=== PATIENT | female | born 1935 | race Caucasian/White ===

== ENCOUNTER → 2017-09-26 | Outpatient (CLI) | payer MEDICARE, SELFPAY ==
[~2017-09-26] MED LIST: ACET500 PO; BENZ100A PO; CELE100; CELE200; CEPH500 PO; Cleocin HCl300 MG PO; DIGITEK; DIGO.125 PO; DIGO.25; DIGO.25 PO; DIGOX125 MCG PO; DIPH50 PO; DOCU100 PO; DONE5 PO; Doxycycline Hy100 MG PO; Duoneb 2.5-0.5 M3 ML INH; ERGO50000 PO; FLUSAL2505 INH; FLUT.05NI; FURO20; FURO40; FURO40 PO; HYDCHLSU PO; HYDPAM25 PO; LACT10SY PO; LEVFLO500 PO; LEVSOD100; LEVSOD100 PO; LEVSOD50 PO; Levaquin500 MG PO; MECL25 PO; METO25ER PO; Norco 5-325 Ta1 EACH PO; ONDA4 PO; PRED10 PO; PRED20 PO; Prednisone20 MG PO; RXCLIN PO; RXTRAM50 PO; SERT100 PO; SERT25; SERT25 PO; SULTRIDS PO; THYROXINE; TRAM50 PO; VENL37.5 PO; VENL37.5ER PO; Ventolin Soln3 ML INH; Vibramycin100 MG PO; WARF1 PO; WARF3; WARF5 PO; WARF6; WARF6 PO; WARF7.5 PO; XARELTO15 MG PO; Zithromax250 MG PO
== END | disposition home or self-care (01) ==
LOC: LAB 13:45 → LAB SHORT 13:45
DX: L03.116 Cellulitis of left lower limb (principal)
CPT/HCPCS: 87070; 87077; 87186; 87205

== ENCOUNTER 2017-10-20 00:41 | Day surgery (SDC) | payer MEDICARE, SELFPAY ==
[~2017-10-20 00:41] MED LIST changes: -ACET500 PO; -DIGOX125 MCG PO; -DOCU100 PO; -DONE5 PO; -Doxycycline Hy100 MG PO; -VENL37.5ER PO; -WARF5 PO; -XARELTO15 MG PO
[2018-04-23] MEDS ORDERED: VENL37.5ER PO (16:21)
[2018-04-23] MEDS ORDERED: METO25ER PO (16:21)
[2018-08-09] MEDS ORDERED: CEPH500 PO (21:43)
== END 2017-10-20 23:19 | disposition home or self-care (01) ==
LOC: WOUND 00:41
PROC: 0KBT0ZZ Excision of Left Lower Leg Muscle, Open Approach (ICD-10-PCS; principal; 2017-10-20)
DX: L97.223 Non-pressure chronic ulcer of left calf with necrosis of muscle (principal); I87.2 Venous insufficiency (chronic) (peripheral); I87.002 Postthrombotic syndrome without complications of left lower extremity; I10 Essential (primary) hypertension; I48.0 Paroxysmal atrial fibrillation
CPT/HCPCS: 87070; 87075; 87077; 87186; 87205; G0463

== ENCOUNTER 2017-10-26 09:30 | Day surgery (SDC) | payer MEDICARE, OTHER ==
[~2017-10-26] VITALS: Ht 177.8 cm; Wt 94.1 kg
[2018-04-23] MEDS ORDERED: VENL37.5ER PO (16:21)
[2018-04-23] MEDS ORDERED: METO25ER PO (16:21)
[2018-08-09] MEDS ORDERED: CEPH500 PO (21:43)
== END 2017-10-26 14:20 | disposition home or self-care (01) ==
LOC: WOUND 09:30
DX: Z48.00 Encounter for change or removal of nonsurgical wound dressing (principal); L97.223 Non-pressure chronic ulcer of left calf with necrosis of muscle; I87.002 Postthrombotic syndrome without complications of left lower extremity; I87.2 Venous insufficiency (chronic) (peripheral); I10 Essential (primary) hypertension; I48.0 Paroxysmal atrial fibrillation; Z86.718 Personal history of other venous thrombosis and embolism; Z79.01 Long term (current) use of anticoagulants; F32.9 Major depressive disorder, single episode, unspecified
CPT/HCPCS: G0463

== ENCOUNTER 2017-10-30 00:06 | Day surgery (SDC) | payer MEDICARE ==
[2018-04-23] MEDS ORDERED: METO25ER PO (16:21)
[2018-04-23] MEDS ORDERED: VENL37.5ER PO (16:21)
[2018-08-09] MEDS ORDERED: CEPH500 PO (21:43)
== END 2017-10-30 09:40 | disposition home or self-care (01) ==
LOC: WOUND 00:06
PROC: 0HBLXZZ Excision of Left Lower Leg Skin, External Approach (ICD-10-PCS; principal; 2017-10-30)
DX: Z48.00 Encounter for change or removal of nonsurgical wound dressing (principal); I87.2 Venous insufficiency (chronic) (peripheral); L97.223 Non-pressure chronic ulcer of left calf with necrosis of muscle; I87.002 Postthrombotic syndrome without complications of left lower extremity; I10 Essential (primary) hypertension; I48.0 Paroxysmal atrial fibrillation

== ENCOUNTER 2017-11-08 00:11 | Day surgery (SDC) | payer MEDICARE ==
[2018-04-23] MEDS ORDERED: METO25ER PO (16:21)
[2018-04-23] MEDS ORDERED: VENL37.5ER PO (16:21)
[2018-08-09] MEDS ORDERED: CEPH500 PO (21:43)
== END 2017-11-08 22:43 | disposition home or self-care (01) ==
LOC: WOUND 00:11
PROC: 2W1RX6Z Compression of Left Lower Leg using Pressure Dressing (ICD-10-PCS; principal; 2017-11-08)
PROC: 0HBLXZZ Excision of Left Lower Leg Skin, External Approach (ICD-10-PCS; principal; 2017-11-08)
DX: Z48.00 Encounter for change or removal of nonsurgical wound dressing (principal); I87.2 Venous insufficiency (chronic) (peripheral); L97.223 Non-pressure chronic ulcer of left calf with necrosis of muscle; I87.002 Postthrombotic syndrome without complications of left lower extremity; I10 Essential (primary) hypertension; I48.0 Paroxysmal atrial fibrillation
CPT/HCPCS: G0463

== ENCOUNTER → 2017-11-14 | Outpatient (CLI) | payer MEDICARE, SELFPAY ==
[~2017-11-14] MED LIST changes: +ACET500 PO; +DIGOX125 MCG PO; +DOCU100 PO; +DONE5 PO; +Doxycycline Hy100 MG PO; +VENL37.5ER PO; +WARF5 PO; +XARELTO15 MG PO
== END | disposition home or self-care (01) ==
LOC: LAB SHORT 15:52 → OLS 15:52
DX: I87.2 Venous insufficiency (chronic) (peripheral) (principal); L97.223 Non-pressure chronic ulcer of left calf with necrosis of muscle
CPT/HCPCS: 87070; 87205

== ENCOUNTER 2017-11-15 09:01 | Day surgery (SDC) | payer MEDICARE, SELFPAY ==
[~2017-11-15 09:01] MED LIST changes: -ACET500 PO; -DIGOX125 MCG PO; -DOCU100 PO; -DONE5 PO; -Doxycycline Hy100 MG PO; -VENL37.5ER PO; -WARF5 PO; -XARELTO15 MG PO
[2018-04-23] MEDS ORDERED: METO25ER PO (16:21)
[2018-04-23] MEDS ORDERED: VENL37.5ER PO (16:21)
[2018-08-09] MEDS ORDERED: CEPH500 PO (21:43)
== END 2017-11-15 22:36 | disposition home or self-care (01) ==
LOC: WOUND 09:01
PROC: 0HBLXZZ Excision of Left Lower Leg Skin, External Approach (ICD-10-PCS; principal; 2017-11-15)
DX: L97.223 Non-pressure chronic ulcer of left calf with necrosis of muscle (principal); I87.2 Venous insufficiency (chronic) (peripheral); I87.002 Postthrombotic syndrome without complications of left lower extremity; I10 Essential (primary) hypertension; I48.0 Paroxysmal atrial fibrillation; Z79.01 Long term (current) use of anticoagulants
CPT/HCPCS: G0463

== ENCOUNTER 2017-11-22 10:00 | Day surgery (SDC) | payer MEDICARE ==
[2018-04-23] MEDS ORDERED: VENL37.5ER PO (16:21)
[2018-04-23] MEDS ORDERED: METO25ER PO (16:21)
[2018-08-09] MEDS ORDERED: CEPH500 PO (21:43)
== END 2017-11-22 22:54 | disposition home or self-care (01) ==
LOC: WOUND 10:00
PROC: 2W1RX6Z Compression of Left Lower Leg using Pressure Dressing (ICD-10-PCS; principal; 2017-11-22)
DX: I87.2 Venous insufficiency (chronic) (peripheral) (principal); L97.223 Non-pressure chronic ulcer of left calf with necrosis of muscle; I87.002 Postthrombotic syndrome without complications of left lower extremity; I10 Essential (primary) hypertension; I48.0 Paroxysmal atrial fibrillation; Z79.01 Long term (current) use of anticoagulants

== ENCOUNTER 2017-11-29 10:09 | Day surgery (SDC) | payer MEDICARE ==
[2018-04-23] MEDS ORDERED: METO25ER PO (16:21)
[2018-04-23] MEDS ORDERED: VENL37.5ER PO (16:21)
[2018-08-09] MEDS ORDERED: CEPH500 PO (21:43)
== END 2017-11-29 16:49 | disposition home or self-care (01) ==
LOC: WOUND 10:09
PROC: 2W1RX6Z Compression of Left Lower Leg using Pressure Dressing (ICD-10-PCS; principal; 2017-11-29)
DX: I87.2 Venous insufficiency (chronic) (peripheral) (principal); L97.223 Non-pressure chronic ulcer of left calf with necrosis of muscle; I87.002 Postthrombotic syndrome without complications of left lower extremity; I10 Essential (primary) hypertension; I48.0 Paroxysmal atrial fibrillation; Z86.718 Personal history of other venous thrombosis and embolism; Z79.01 Long term (current) use of anticoagulants

== ENCOUNTER 2017-12-08 00:15 | Day surgery (SDC) | payer MEDICARE, SELFPAY ==
[2018-04-23] MEDS ORDERED: VENL37.5ER PO (16:21)
[2018-04-23] MEDS ORDERED: METO25ER PO (16:21)
[2018-08-09] MEDS ORDERED: CEPH500 PO (21:43)
== END 2017-12-08 15:54 | disposition home or self-care (01) ==
LOC: WOUND 00:15
PROC: 0JBP0ZZ Excision of Left Lower Leg Subcutaneous Tissue and Fascia, Open Approach (ICD-10-PCS; principal; 2017-12-08)
DX: Z48.00 Encounter for change or removal of nonsurgical wound dressing (principal); I87.2 Venous insufficiency (chronic) (peripheral); L97.822 Non-pressure chronic ulcer of other part of left lower leg with fat layer exposed; I87.002 Postthrombotic syndrome without complications of left lower extremity; I82.512 Chronic embolism and thrombosis of left femoral vein; I48.0 Paroxysmal atrial fibrillation; I10 Essential (primary) hypertension; F32.9 Major depressive disorder, single episode, unspecified; Z79.01 Long term (current) use of anticoagulants; Z90.710 Acquired absence of both cervix and uterus
CPT/HCPCS: 87070; 87075; 87077; 87186; 87205

== ENCOUNTER 2017-12-13 10:00 | Day surgery (SDC) | payer MEDICARE | END 2017-12-13 12:08 | disposition home or self-care (01) | LOC: WOUND 10:00 | PROC: 0HBLXZZ Excision of Left Lower Leg Skin, External Approach (ICD-10-PCS; principal; 2017-12-13) | DX: I87.2 Venous insufficiency (chronic) (peripheral) (principal); L97.223 Non-pressure chronic ulcer of left calf with necrosis of muscle; I87.002 Postthrombotic syndrome without complications of left lower extremity; I10 Essential (primary) hypertension; I48.0 Paroxysmal atrial fibrillation; F03.90 Unspecified dementia, unspecified severity, without behavioral disturbance, psychotic disturbance, mood disturbance, and anxiety; Z86.718 Personal history of other venous thrombosis and embolism; Z79.01 Long term (current) use of anticoagulants; F32.9 Major depressive disorder, single episode, unspecified | CPT/HCPCS: G0463 ==

== ENCOUNTER 2017-12-16 18:38 | Observation (INO) | payer MEDICARE ==
[~2017-12-16] VITALS: Ht 177.8 cm; Wt 90.0 kg
[2017-12-16] MEDS ORDERED: WARF5 PO ×2 (19:08→19:09)
[2017-12-17 01:33] LABS: Source, Urine Clean Catch
[2017-12-17 02:05] LABS: Bilirubin, Urine Neg (Neg); Blood, Urine 1+ (Neg); Glucose Qualitative, Urine Neg (Neg); Ketones, Urine Neg (Neg); Leukocyte Esterase, Urine Neg (Neg); Nitrite, Urine Neg (Neg); Protein, Urine Neg (Neg); Urobilinogen, Urine NORM (Normal); pH, Urine 6.5 (5.0-8.0)
[2017-12-17 02:10] LABS: Appearance, Urine Hazy (Clear); Color, Urine Yellow (P-Yellow)
[2017-12-17 02:26] LABS: Bacteria Not Seen /hpf; Other Crystals Many /hpf; Red Blood Cells, Urine 0-2 /hpf (0-2); Squamous Epithelial Cells Not Seen /hpf (Few); White Blood Cells, Urine Not Seen /hpf (0-5)
[2017-12-17 05:27] LABS: BASOPHILS ABSOLUTE AUTO 0.02 K/mm3 (0.00-0.23); BASOPHILS PERCENT AUTO 0 % (0-2); EOSINOPHILS ABSOLUTE AUTO 0.23 K/mm3 (0.00-0.68); EOSINOPHILS PERCENT AUTO 5 % (0-6); Hematocrit 32.1 % (33.0-51.0); Hemoglobin 10.1 g/dL (11.5-16.0); IMMATURE GRAN ABSOLUTE AUTO 0.01 K/mm3 (0.00-0.10); IMMATURE GRAN PERCENT AUTO 0 % (0-1); LYMPHOCYTES ABSOLUTE AUTO 1.25 K/mm3 (0.84-5.20); LYMPHOCYTES PERCENT AUTO 26 % (21-46); MONOCYTES ABSOLUTE AUTO 0.41 K/mm3 (0.16-1.47); MONOCYTES PERCENT AUTO 9 % (4-13); Mean Corpuscular HGB 28.7 pg (26.0-34.0); Mean Corpuscular HGB Conc 31.5 g/dL (31.5-36.5); Mean Corpuscular Volume 91 fL (80-100); Mean Platelet Volume 9.4 fL (9.1-12.4); NEUTROPHILS ABSOLUTE AUTO 2.83 K/mm3 (1.96-9.15); NEUTROPHILS PERCENT AUTO 60 % (41-73); Platelet Count 200 K/mm3 (150-400); RDW Coefficient Variation 14.1 % (11.7-14.2); RDW Standard Deviation 47.4 fL (35.1-46.3); Red Blood Cell Count 3.52 M/mm3 (3.80-5.20); White Blood Cell Count 4.75 K/mm3 (4.00-11.30)
[2017-12-17 05:39] LABS: International Normalized Ratio 1.8; Prothrombin Time Results 19.1 Sec (9.7-11.5)
[2017-12-17 05:50] LABS: Alanine Aminotransfer (ALT/SGP 19 U/L (12-78); Albumin, Blood 3.2 g/dL (3.4-5.0); Albumin/Globulin Ratio 0.9 (0.8-1.8); Alk Phos 69 U/L (50-136); Anion Gap 7 mmol/L (6-16); Aspartate Aminotrans (AST/SGOT 16 U/L (12-37); Bilirubin, Total 0.4 mg/dL (0.1-1.0); Blood Urea Nitrogen 21 mg/dL (8-24); Bun/Creatinine Ratio 32.8 (12.0-20.0); CO2, Blood 28 mmol/L (21-32); Chloride, Blood 107 mmol/L (98-108); Creatinine, Blood 0.64 mg/dL (0.40-1.00); Globulin, Blood 3.4 g/dL (2.2-4.0); Glomerular Filtration Rate >60 (60-); Glucose, Blood 88 mg/dL (70-99); Potassium, Blood 3.7 mmol/L (3.5-5.5); Sodium, Blood 142 mmol/L (136-145); Total Protein, Blood 6.6 g/dL (6.4-8.2)
[2017-12-17 06:04] LABS: Digoxin (Lanoxin) 0.09 ug/mL (0.80-2.00)
[2017-12-18 05:36] LABS: BASOPHILS ABSOLUTE AUTO 0.02 K/mm3 (0.00-0.23); BASOPHILS PERCENT AUTO 1 % (0-2); EOSINOPHILS ABSOLUTE AUTO 0.24 K/mm3 (0.00-0.68); EOSINOPHILS PERCENT AUTO 6 % (0-6); Hematocrit 32.4 % (33.0-51.0); Hemoglobin 10.4 g/dL (11.5-16.0); IMMATURE GRAN ABSOLUTE AUTO 0.01 K/mm3 (0.00-0.10); IMMATURE GRAN PERCENT AUTO 0 % (0-1); LYMPHOCYTES ABSOLUTE AUTO 0.92 K/mm3 (0.84-5.20); LYMPHOCYTES PERCENT AUTO 22 % (21-46); MONOCYTES ABSOLUTE AUTO 0.37 K/mm3 (0.16-1.47); MONOCYTES PERCENT AUTO 9 % (4-13); Mean Corpuscular HGB 29.1 pg (26.0-34.0); Mean Corpuscular HGB Conc 32.1 g/dL (31.5-36.5); Mean Corpuscular Volume 91 fL (80-100); Mean Platelet Volume 9.4 fL (9.1-12.4); NEUTROPHILS ABSOLUTE AUTO 2.57 K/mm3 (1.96-9.15); NEUTROPHILS PERCENT AUTO 62 % (41-73); Platelet Count 191 K/mm3 (150-400); RDW Coefficient Variation 14.1 % (11.7-14.2); RDW Standard Deviation 46.9 fL (35.1-46.3); Red Blood Cell Count 3.58 M/mm3 (3.80-5.20); White Blood Cell Count 4.13 K/mm3 (4.00-11.30)
[2017-12-18 05:48] LABS: International Normalized Ratio 1.77; Prothrombin Time Results 18.7 Sec (9.7-11.5)
[2017-12-18 05:58] LABS: Anion Gap 6 mmol/L (6-16); Blood Urea Nitrogen 30 mg/dL (8-24); Bun/Creatinine Ratio 35.3 (12.0-20.0); CO2, Blood 28 mmol/L (21-32); Calcium, Blood 8.1 mg/dL (8.5-10.1); Chloride, Blood 107 mmol/L (98-108); Creatinine, Blood 0.85 mg/dL (0.40-1.00); Glomerular Filtration Rate >60 (60-); Glucose, Blood 103 mg/dL (70-99); Sodium, Blood 141 mmol/L (136-145)
[2017-12-18] MEDS ORDERED: DOCU100 PO (15:00)
[2017-12-18] MEDS ORDERED: DIGOX125 MCG PO (15:00)
[2017-12-18] MEDS ORDERED: ACET500 PO (15:01)
[2017-12-18] MEDS ORDERED: DONE5 PO (15:02)
== END 2017-12-18 17:40 | disposition home health service (06) ==
LOC: ER 18:38 → MEDS 18:39 → ER 12-17 00:27 → MEDS 12-17 00:35 → ENPENDDIS 12-18 14:00 → MEDS 12-18 17:40
PROVIDERS: Hospitalist; Internal Medicine
DX: S70.02XA Contusion of left hip, initial encounter (principal); S30.0XXA Contusion of lower back and pelvis, initial encounter; S80.12XA Contusion of left lower leg, initial encounter; F03.90 Unspecified dementia, unspecified severity, without behavioral disturbance, psychotic disturbance, mood disturbance, and anxiety; I87.2 Venous insufficiency (chronic) (peripheral); E03.9 Hypothyroidism, unspecified; R41.9 Unspecified symptoms and signs involving cognitive functions and awareness; F41.9 Anxiety disorder, unspecified; L97.329 Non-pressure chronic ulcer of left ankle with unspecified severity; Z88.0 Allergy status to penicillin; Z88.2 Allergy status to sulfonamides; Z79.899 Other long term (current) drug therapy; Z88.6 Allergy status to analgesic agent; Z88.8 Allergy status to other drugs, medicaments and biological substances; Z79.01 Long term (current) use of anticoagulants; Z88.1 Allergy status to other antibiotic agents; Z91.041 Radiographic dye allergy status; V87.8XXA Person injured in other specified noncollision transport accidents involving motor vehicle (traffic), initial encounter
CPT/HCPCS: 36415; 72100; 72131; 73502; 73700; 80048; 80053; 80162; 81001; 85025; 85610; 96372; 96374; 96375; 97116; 97161; 97167; 97530; 97535; 99285; G0378; G8978; G8979; G8987; G8988; J1650; J1885; J3010; Q2038

== ENCOUNTER 2017-12-20 10:20 | Day surgery (SDC) | payer MEDICARE ==
[~2017-12-20 10:20] MED LIST changes: +ACET500 PO; +DIGOX125 MCG PO; +DOCU100 PO; +DONE5 PO; +WARF5 PO
== END 2017-12-20 22:45 | disposition home or self-care (01) ==
LOC: WOUND 10:20
DX: Z48.00 Encounter for change or removal of nonsurgical wound dressing (principal); I87.2 Venous insufficiency (chronic) (peripheral); L97.223 Non-pressure chronic ulcer of left calf with necrosis of muscle; I87.002 Postthrombotic syndrome without complications of left lower extremity; I10 Essential (primary) hypertension; I48.0 Paroxysmal atrial fibrillation; Z79.01 Long term (current) use of anticoagulants
CPT/HCPCS: G0463

== ENCOUNTER 2017-12-25 10:22 | Day surgery (SDC) | payer MEDICARE | END 2017-12-25 12:05 | disposition home or self-care (01) | LOC: WOUND 10:22 | PROC: 2W1MX6Z Compression of Left Lower Extremity using Pressure Dressing (ICD-10-PCS; principal; 2017-12-25) | PROC: 0HBLXZZ Excision of Left Lower Leg Skin, External Approach (ICD-10-PCS; principal; 2017-12-25) | DX: I87.2 Venous insufficiency (chronic) (peripheral) (principal); L97.329 Non-pressure chronic ulcer of left ankle with unspecified severity; L97.223 Non-pressure chronic ulcer of left calf with necrosis of muscle; I87.002 Postthrombotic syndrome without complications of left lower extremity; I10 Essential (primary) hypertension; I48.0 Paroxysmal atrial fibrillation; Z79.01 Long term (current) use of anticoagulants ==

== ENCOUNTER 2017-12-25 11:39 | Emergency (ER) | payer MEDICARE ==
[~2017-12-25] VITALS: Ht 177.8 cm; Wt 90.7 kg
== END 2017-12-25 14:42 | disposition home or self-care (01) ==
LOC: ER 11:39
DX: T14.8XXA Other injury of unspecified body region, initial encounter (principal); I48.91 Unspecified atrial fibrillation; Z88.2 Allergy status to sulfonamides; Z88.0 Allergy status to penicillin; Z88.6 Allergy status to analgesic agent; Z88.8 Allergy status to other drugs, medicaments and biological substances; Z88.1 Allergy status to other antibiotic agents; Z79.899 Other long term (current) drug therapy; Z79.01 Long term (current) use of anticoagulants; Z86.718 Personal history of other venous thrombosis and embolism; W19.XXXA Unspecified fall, initial encounter
CPT/HCPCS: 99282

== ENCOUNTER 2018-01-08 10:15 | Day surgery (SDC) | payer MEDICARE, SELFPAY | END 2018-01-08 23:09 | disposition home or self-care (01) | LOC: WOUND 10:15 | PROC: 2W1RX6Z Compression of Left Lower Leg using Pressure Dressing (ICD-10-PCS; principal; 2018-01-08) | DX: L97.822 Non-pressure chronic ulcer of other part of left lower leg with fat layer exposed (principal); I87.2 Venous insufficiency (chronic) (peripheral); L97.223 Non-pressure chronic ulcer of left calf with necrosis of muscle; I87.002 Postthrombotic syndrome without complications of left lower extremity; I10 Essential (primary) hypertension; I48.0 Paroxysmal atrial fibrillation; Z79.02 Long term (current) use of antithrombotics/antiplatelets; F32.9 Major depressive disorder, single episode, unspecified | CPT/HCPCS: G0463 ==

== ENCOUNTER 2018-01-15 10:00 | Day surgery (SDC) | payer MEDICARE, SELFPAY | END 2018-01-15 12:09 | disposition home or self-care (01) | LOC: WOUND 10:00 | PROC: 2W1RX6Z Compression of Left Lower Leg using Pressure Dressing (ICD-10-PCS; principal; 2018-01-15) | DX: L97.822 Non-pressure chronic ulcer of other part of left lower leg with fat layer exposed (principal); I87.2 Venous insufficiency (chronic) (peripheral); L97.223 Non-pressure chronic ulcer of left calf with necrosis of muscle; I10 Essential (primary) hypertension; I48.0 Paroxysmal atrial fibrillation; Z79.01 Long term (current) use of anticoagulants | CPT/HCPCS: G0463 ==

== ENCOUNTER 2018-01-22 10:20 | Day surgery (SDC) | payer MEDICARE, SELFPAY | END 2018-01-22 22:43 | disposition home or self-care (01) | LOC: WOUND 10:20 | PROC: 0HBLXZZ Excision of Left Lower Leg Skin, External Approach (ICD-10-PCS; principal; 2018-01-22) | PROC: 2W1MX6Z Compression of Left Lower Extremity using Pressure Dressing (ICD-10-PCS; principal; 2018-01-22) | DX: I87.2 Venous insufficiency (chronic) (peripheral) (principal); L97.822 Non-pressure chronic ulcer of other part of left lower leg with fat layer exposed; I87.002 Postthrombotic syndrome without complications of left lower extremity; I10 Essential (primary) hypertension; I48.0 Paroxysmal atrial fibrillation; Z79.01 Long term (current) use of anticoagulants | CPT/HCPCS: G0463 ==

== ENCOUNTER 2018-01-29 09:08 | Day surgery (SDC) | payer MEDICARE, SELFPAY | END 2018-01-29 22:46 | disposition home or self-care (01) | LOC: WOUND 09:08 | PROC: 2W1RX6Z Compression of Left Lower Leg using Pressure Dressing (ICD-10-PCS; principal; 2018-01-29) | DX: I87.2 Venous insufficiency (chronic) (peripheral) (principal); L97.822 Non-pressure chronic ulcer of other part of left lower leg with fat layer exposed; L97.223 Non-pressure chronic ulcer of left calf with necrosis of muscle; I10 Essential (primary) hypertension; I48.0 Paroxysmal atrial fibrillation; Z79.01 Long term (current) use of anticoagulants | CPT/HCPCS: G0463 ==

== ENCOUNTER 2018-02-05 10:15 | Day surgery (SDC) | payer MEDICARE, SELFPAY | END 2018-02-05 12:39 | disposition home or self-care (01) | LOC: WOUND 10:15 | PROC: 0HBLXZZ Excision of Left Lower Leg Skin, External Approach (ICD-10-PCS; principal; 2018-02-05) | DX: L97.822 Non-pressure chronic ulcer of other part of left lower leg with fat layer exposed (principal); I10 Essential (primary) hypertension; F32.9 Major depressive disorder, single episode, unspecified; Z79.01 Long term (current) use of anticoagulants; I48.0 Paroxysmal atrial fibrillation ==

== ENCOUNTER 2018-02-19 10:30 | Day surgery (SDC) | payer MEDICARE, SELFPAY | END 2018-02-19 13:50 | disposition home or self-care (01) | LOC: WOUND 10:30 | PROC: 0HBLXZZ Excision of Left Lower Leg Skin, External Approach (ICD-10-PCS; principal; 2018-02-19) | PROC: 2W1RX6Z Compression of Left Lower Leg using Pressure Dressing (ICD-10-PCS; principal; 2018-02-19) | DX: L97.822 Non-pressure chronic ulcer of other part of left lower leg with fat layer exposed (principal); I10 Essential (primary) hypertension; F32.9 Major depressive disorder, single episode, unspecified; Z86.718 Personal history of other venous thrombosis and embolism; Z79.01 Long term (current) use of anticoagulants; I87.2 Venous insufficiency (chronic) (peripheral); I48.0 Paroxysmal atrial fibrillation | CPT/HCPCS: G0463 ==

== ENCOUNTER 2018-02-26 10:22 | Day surgery (SDC) | payer MEDICARE, SELFPAY | END 2018-02-26 11:25 | disposition home or self-care (01) | LOC: WOUND 10:22 | PROC: 2W1RX6Z Compression of Left Lower Leg using Pressure Dressing (ICD-10-PCS; principal; 2018-02-26) | PROC: 0HBLXZZ Excision of Left Lower Leg Skin, External Approach (ICD-10-PCS; principal; 2018-02-26) | DX: I87.2 Venous insufficiency (chronic) (peripheral) (principal); L97.829 Non-pressure chronic ulcer of other part of left lower leg with unspecified severity; I87.002 Postthrombotic syndrome without complications of left lower extremity; I10 Essential (primary) hypertension; I48.0 Paroxysmal atrial fibrillation; Z79.01 Long term (current) use of anticoagulants ==

== ENCOUNTER 2018-03-12 10:29 | Day surgery (SDC) | payer MEDICARE, SELFPAY | END 2018-03-12 13:52 | disposition home or self-care (01) | LOC: WOUND 10:29 | PROC: 0HBLXZZ Excision of Left Lower Leg Skin, External Approach (ICD-10-PCS; principal; 2018-03-12) | PROC: 2W1MX6Z Compression of Left Lower Extremity using Pressure Dressing (ICD-10-PCS; principal; 2018-03-12) | DX: L97.822 Non-pressure chronic ulcer of other part of left lower leg with fat layer exposed (principal); I87.2 Venous insufficiency (chronic) (peripheral); I87.002 Postthrombotic syndrome without complications of left lower extremity; I10 Essential (primary) hypertension; I48.0 Paroxysmal atrial fibrillation; Z86.718 Personal history of other venous thrombosis and embolism; Z79.01 Long term (current) use of anticoagulants; F32.9 Major depressive disorder, single episode, unspecified ==

== ENCOUNTER 2018-03-26 10:30 | Day surgery (SDC) | payer MEDICARE, SELFPAY | END 2018-03-26 12:12 | disposition home or self-care (01) | LOC: WOUND 10:30 | DX: L97.822 Non-pressure chronic ulcer of other part of left lower leg with fat layer exposed (principal); L97.223 Non-pressure chronic ulcer of left calf with necrosis of muscle; I87.2 Venous insufficiency (chronic) (peripheral); I87.002 Postthrombotic syndrome without complications of left lower extremity; I10 Essential (primary) hypertension; I48.0 Paroxysmal atrial fibrillation; Z86.718 Personal history of other venous thrombosis and embolism; Z79.01 Long term (current) use of anticoagulants; F32.9 Major depressive disorder, single episode, unspecified; R60.0 Localized edema; L84 Corns and callosities | CPT/HCPCS: G0463 ==

== ENCOUNTER 2018-04-02 10:30 | Day surgery (SDC) | payer MEDICARE, SELFPAY | END 2018-04-02 12:19 | disposition home or self-care (01) | LOC: WOUND 10:30 | PROC: 0JBP0ZZ Excision of Left Lower Leg Subcutaneous Tissue and Fascia, Open Approach (ICD-10-PCS; principal; 2018-04-02) | PROC: 2W1RX6Z Compression of Left Lower Leg using Pressure Dressing (ICD-10-PCS; principal; 2018-04-02) | DX: Z48.00 Encounter for change or removal of nonsurgical wound dressing (principal); I87.2 Venous insufficiency (chronic) (peripheral); I87.002 Postthrombotic syndrome without complications of left lower extremity; L97.822 Non-pressure chronic ulcer of other part of left lower leg with fat layer exposed; I10 Essential (primary) hypertension; I48.0 Paroxysmal atrial fibrillation; F32.9 Major depressive disorder, single episode, unspecified; Z86.718 Personal history of other venous thrombosis and embolism; Z79.01 Long term (current) use of anticoagulants | CPT/HCPCS: G0463 ==

== ENCOUNTER 2018-04-04 14:30 | Day surgery (SDC) | payer MEDICARE, SELFPAY | END 2018-04-04 14:51 | disposition home or self-care (01) | LOC: WOUND 14:30 | PROC: 2W1RX6Z Compression of Left Lower Leg using Pressure Dressing (ICD-10-PCS; principal; 2018-04-04) | DX: I87.2 Venous insufficiency (chronic) (peripheral) (principal); L97.223 Non-pressure chronic ulcer of left calf with necrosis of muscle; I48.0 Paroxysmal atrial fibrillation; I10 Essential (primary) hypertension ==

== ENCOUNTER 2018-04-24 09:18 | Day surgery (SDC) | payer MEDICARE, SELFPAY ==
[~2018-04-24] VITALS: Ht 177.8 cm; Wt 90.0 kg
[~2018-04-24 09:18] MED LIST changes: +VENL37.5ER PO
[2018-04-24] MEDS ORDERED: XARELTO15 MG PO (10:34)
== END 2018-04-24 22:34 | disposition home or self-care (01) ==
LOC: MHTC 09:18
PROC: 3E033TZ Introduction of Destructive Agent into Peripheral Vein, Percutaneous Approach (ICD-10-PCS; principal; 2018-04-24)
DX: I83.029 Varicose veins of left lower extremity with ulcer of unspecified site (principal); L97.929 Non-pressure chronic ulcer of unspecified part of left lower leg with unspecified severity; I87.2 Venous insufficiency (chronic) (peripheral); E03.9 Hypothyroidism, unspecified
CPT/HCPCS: 36466; 99152; J2250; J3010; J7030; J7040

== ENCOUNTER → 2018-05-09 | Outpatient (CLI) | payer MEDICARE, SELFPAY ==
[~2018-05-09] MED LIST changes: +Doxycycline Hy100 MG PO; +XARELTO15 MG PO
[2018-05-09 11:50] LABS: BASOPHILS ABSOLUTE AUTO 0.01 K/mm3 (0.00-0.23); BASOPHILS PERCENT AUTO 0 % (0-2); EOSINOPHILS ABSOLUTE AUTO 0.21 K/mm3 (0.00-0.68); EOSINOPHILS PERCENT AUTO 5 % (0-6); Hematocrit 32.9 % (33.0-51.0); Hemoglobin 10.5 g/dL (11.5-16.0); IMMATURE GRAN ABSOLUTE AUTO 0.01 K/mm3 (0.00-0.10); IMMATURE GRAN PERCENT AUTO 0 % (0-1); LYMPHOCYTES ABSOLUTE AUTO 0.79 K/mm3 (0.84-5.20); LYMPHOCYTES PERCENT AUTO 20 % (21-46); MONOCYTES ABSOLUTE AUTO 0.25 K/mm3 (0.16-1.47); MONOCYTES PERCENT AUTO 6 % (4-13); Mean Corpuscular HGB 29.9 pg (26.0-34.0); Mean Corpuscular HGB Conc 31.9 g/dL (31.5-36.5); Mean Corpuscular Volume 94 fL (80-100); Mean Platelet Volume 9.4 fL (9.1-12.4); NEUTROPHILS ABSOLUTE AUTO 2.66 K/mm3 (1.96-9.15); NEUTROPHILS PERCENT AUTO 68 % (41-73); Platelet Count 211 K/mm3 (150-400); RDW Coefficient Variation 13.9 % (11.7-14.2); RDW Standard Deviation 47.4 fL (35.1-46.3); Red Blood Cell Count 3.51 M/mm3 (3.80-5.20); White Blood Cell Count 3.93 K/mm3 (4.00-11.30)
[2018-05-09 12:42] LABS: Alanine Aminotransfer (ALT/SGP 19 U/L (12-78); Albumin, Blood 3.8 g/dL (3.4-5.0); Albumin/Globulin Ratio 1.2 (0.8-1.8); Alk Phos 70 U/L (50-136); Anion Gap 7 mmol/L (6-16); Aspartate Aminotrans (AST/SGOT 14 U/L (12-37); Bilirubin, Total 0.4 mg/dL (0.1-1.0); Blood Urea Nitrogen 22 mg/dL (8-24); Bun/Creatinine Ratio 30.9 (12.0-20.0); CHOL/HDL RATIO 3.3; CO2, Blood 28 mmol/L (21-32); Chloride, Blood 106 mmol/L (98-108); Cholesterol 149 mg/dL (50-200); Creatinine, Blood 0.71 mg/dL (0.40-1.00); Globulin, Blood 3.1 g/dL (2.2-4.0); Glomerular Filtration Rate >60 (60-); Glucose, Blood 89 mg/dL (70-99); HDL Cholesterol 45 mg/dL (>39); LDL/HDL RATIO 1.9; Low Density Lipoprotein Chol 85 mg/dL (0-110); Potassium, Blood 3.4 mmol/L (3.5-5.5); Sodium, Blood 141 mmol/L (136-145); Total Protein, Blood 6.9 g/dL (6.4-8.2); Triglycerides 96 mg/dL (30-160); Very Low Density Lipoprot Chol 19 mg/dL (6-32)
== END ==
LOC: LAB 11:36 → LAB SHORT 11:36
PROVIDERS: Hospitalist
DX: E78.5 Hyperlipidemia, unspecified (principal); R73.01 Impaired fasting glucose; E78.4 Other hyperlipidemia; E03.8 Other specified hypothyroidism; E03.9 Hypothyroidism, unspecified; I10 Essential (primary) hypertension; I48.2 Chronic atrial fibrillation
CPT/HCPCS: 80053; 80061; 83036; 84443; 85025

== ENCOUNTER 2018-05-17 21:30 | Emergency (ER) | payer MEDICARE, SELFPAY ==
[~2018-05-17] VITALS: Ht 162.6 cm; Wt 81.7 kg
[~2018-05-17 21:30] MED LIST changes: -Doxycycline Hy100 MG PO
[2018-05-17 22:44] LABS: BASOPHILS ABSOLUTE AUTO 0.02 K/mm3 (0.00-0.23); BASOPHILS PERCENT AUTO 0 % (0-2); EOSINOPHILS ABSOLUTE AUTO 0.17 K/mm3 (0.00-0.68); EOSINOPHILS PERCENT AUTO 2 % (0-6); Hematocrit 34.3 % (33.0-51.0); IMMATURE GRAN ABSOLUTE AUTO 0.02 K/mm3 (0.00-0.10); IMMATURE GRAN PERCENT AUTO 0 % (0-1); LYMPHOCYTES ABSOLUTE AUTO 0.79 K/mm3 (0.84-5.20); LYMPHOCYTES PERCENT AUTO 11 % (21-46); MONOCYTES ABSOLUTE AUTO 0.54 K/mm3 (0.16-1.47); MONOCYTES PERCENT AUTO 7 % (4-13); Mean Corpuscular HGB 30.3 pg (26.0-34.0); Mean Corpuscular HGB Conc 32.1 g/dL (31.5-36.5); Mean Corpuscular Volume 95 fL (80-100); Mean Platelet Volume 9.4 fL (9.1-12.4); NEUTROPHILS ABSOLUTE AUTO 5.87 K/mm3 (1.96-9.15); NEUTROPHILS PERCENT AUTO 79 % (41-73); Platelet Count 194 K/mm3 (150-400); RDW Coefficient Variation 13.9 % (11.7-14.2); RDW Standard Deviation 48.4 fL (35.1-46.3); Red Blood Cell Count 3.63 M/mm3 (3.80-5.20); White Blood Cell Count 7.41 K/mm3 (4.00-11.30)
[2018-05-17 22:57] LABS: International Normalized Ratio 1.46; Prothrombin Time Results 14.7 Sec (9.7-11.5)
[2018-05-17 23:01] LABS: Anion Gap 6 mmol/L (6-16); Blood Urea Nitrogen 20 mg/dL (8-24); CO2, Blood 30 mmol/L (21-32); Calcium, Blood 8.4 mg/dL (8.5-10.1); Chloride, Blood 104 mmol/L (98-108); Creatinine, Blood 0.87 mg/dL (0.40-1.00); Glomerular Filtration Rate >60 (60-); Glucose, Blood 124 mg/dL (70-99); Potassium, Blood 3.9 mmol/L (3.5-5.5); Sodium, Blood 140 mmol/L (136-145)
[2018-05-18] MEDS ORDERED: Doxycycline Hy100 MG PO (00:18)
== END 2018-05-18 00:39 | disposition home or self-care (01) ==
LOC: ER 21:30
PROVIDERS: Emergency Medicine
DX: L03.115 Cellulitis of right lower limb (principal); R79.1 Abnormal coagulation profile; I48.91 Unspecified atrial fibrillation; Z88.2 Allergy status to sulfonamides; Z88.0 Allergy status to penicillin; Z88.6 Allergy status to analgesic agent; Z88.1 Allergy status to other antibiotic agents; Z88.8 Allergy status to other drugs, medicaments and biological substances; Z79.899 Other long term (current) drug therapy; Z79.01 Long term (current) use of anticoagulants
CPT/HCPCS: 36415; 73610; 80048; 85025; 85610; 93971; 99284-25

== ENCOUNTER → 2018-08-03 | Outpatient (CLI) | payer MEDICARE ==
[~2018-08-03] MED LIST changes: +Doxycycline Hy100 MG PO; +XARELTO2.5 MG PO
[2018-08-03 18:06] LABS: BASOPHILS ABSOLUTE AUTO 0.01 K/mm3 (0.00-0.23); BASOPHILS PERCENT AUTO 0 % (0-2); EOSINOPHILS ABSOLUTE AUTO 0.17 K/mm3 (0.00-0.68); EOSINOPHILS PERCENT AUTO 2 % (0-6); Hematocrit 34.1 % (33.0-51.0); Hemoglobin 11.1 g/dL (11.5-16.0); IMMATURE GRAN ABSOLUTE AUTO 0.03 K/mm3 (0.00-0.10); IMMATURE GRAN PERCENT AUTO 0 % (0-1); LYMPHOCYTES ABSOLUTE AUTO 0.73 K/mm3 (0.84-5.20); LYMPHOCYTES PERCENT AUTO 8 % (21-46); MONOCYTES ABSOLUTE AUTO 0.49 K/mm3 (0.16-1.47); MONOCYTES PERCENT AUTO 5 % (4-13); Mean Corpuscular HGB 29.8 pg (26.0-34.0); Mean Corpuscular HGB Conc 32.6 g/dL (31.5-36.5); Mean Corpuscular Volume 92 fL (80-100); Mean Platelet Volume 9.4 fL (9.1-12.4); NEUTROPHILS ABSOLUTE AUTO 7.78 K/mm3 (1.96-9.15); NEUTROPHILS PERCENT AUTO 85 % (41-73); Platelet Count 211 K/mm3 (150-400); RDW Coefficient Variation 15.2 % (11.7-14.2); RDW Standard Deviation 51.7 fL (35.1-46.3); Red Blood Cell Count 3.72 M/mm3 (3.80-5.20); White Blood Cell Count 9.21 K/mm3 (4.00-11.30)
[2018-08-03 18:16] LABS: Albumin/Globulin Ratio 1.1 (0.8-1.8); Bilirubin, Total 0.8 mg/dL (0.1-1.0); Bun/Creatinine Ratio 25.5 (12.0-20.0); Calcium, Blood 8.9 mg/dL (8.5-10.1); Creatinine, Blood 1.06 mg/dL (0.40-1.00); Globulin, Blood 3.8 g/dL (2.2-4.0); Potassium, Blood 4.1 mmol/L (3.5-5.5); Total Protein, Blood 7.8 g/dL (6.4-8.2)
== END | disposition home or self-care (01) ==
LOC: LAB EV 18:01 → LAB SHORT 18:01
PROVIDERS: Physician Assistant
DX: R60.0 Localized edema (principal)
CPT/HCPCS: 80053; 85025

== ENCOUNTER 2018-09-07 23:03 | Emergency (ER) | payer MEDICARE, OTHER ==
[~2018-09-07] VITALS: Ht 177.8 cm; Wt 93.9 kg
[~2018-09-07 23:03] MED LIST changes: -XARELTO2.5 MG PO
[2018-09-07 23:46] LABS: BASOPHILS ABSOLUTE AUTO 0.02 K/mm3 (0.00-0.23); BASOPHILS PERCENT AUTO 0 % (0-2); EOSINOPHILS ABSOLUTE AUTO 0.19 K/mm3 (0.00-0.68); EOSINOPHILS PERCENT AUTO 3 % (0-6); Hemoglobin 11.5 g/dL (11.5-16.0); IMMATURE GRAN ABSOLUTE AUTO 0.01 K/mm3 (0.00-0.10); IMMATURE GRAN PERCENT AUTO 0 % (0-1); LYMPHOCYTES PERCENT AUTO 16 % (21-46); MONOCYTES ABSOLUTE AUTO 0.32 K/mm3 (0.16-1.47); MONOCYTES PERCENT AUTO 5 % (4-13); Mean Corpuscular HGB Conc 31.9 g/dL (31.5-36.5); Mean Corpuscular Volume 91 fL (80-100); Mean Platelet Volume 9.1 fL (9.1-12.4); NEUTROPHILS ABSOLUTE AUTO 4.59 K/mm3 (1.96-9.15); NEUTROPHILS PERCENT AUTO 75 % (41-73); Platelet Count 206 K/mm3 (150-400); RDW Standard Deviation 50.1 fL (35.1-46.3); Red Blood Cell Count 3.97 M/mm3 (3.80-5.20); White Blood Cell Count 6.13 K/mm3 (4.00-11.30)
[2018-09-08 00:04] LABS: Alanine Aminotransfer (ALT/SGP 24 U/L (12-78); Albumin, Blood 4.1 g/dL (3.4-5.0); Albumin/Globulin Ratio 1.1 (0.8-1.8); Alk Phos 75 U/L (50-136); Anion Gap 9 mmol/L (6-16); Aspartate Aminotrans (AST/SGOT 18 U/L (12-37); Bilirubin, Total 0.4 mg/dL (0.1-1.0); Blood Urea Nitrogen 28 mg/dL (8-24); CO2, Blood 26 mmol/L (21-32); Calcium, Blood 8.9 mg/dL (8.5-10.1); Chloride, Blood 103 mmol/L (98-108); Globulin, Blood 3.8 g/dL (2.2-4.0); Glomerular Filtration Rate 56 (60-); Glucose, Blood 135 mg/dL (70-99); Potassium, Blood 3.8 mmol/L (3.5-5.5); Sodium, Blood 138 mmol/L (136-145); Total Protein, Blood 7.9 g/dL (6.4-8.2); Troponin I <0.015 ng/mL (0.000-0.040)
[2018-09-08] MEDS ORDERED: XARELTO2.5 MG PO (01:05)
== END 2018-09-08 01:44 | disposition home or self-care (01) ==
LOC: ER 23:03
PROVIDERS: Physician Assistant
DX: F41.9 Anxiety disorder, unspecified (principal); Z88.2 Allergy status to sulfonamides; Z88.0 Allergy status to penicillin; Z88.8 Allergy status to other drugs, medicaments and biological substances; Z88.1 Allergy status to other antibiotic agents; Z79.899 Other long term (current) drug therapy; I48.91 Unspecified atrial fibrillation
CPT/HCPCS: 36415; 71046; 80053; 83880; 84484; 85025; 93005; 93010; 96374; 99284-25; J2060

== ENCOUNTER 2018-11-27 08:37 | Day surgery (SDC) | payer MEDICARE, OTHER ==
[~2018-11-27] VITALS: Ht 172.7 cm; Wt 91.0 kg
[~2018-11-27 08:37] MED LIST changes: +XARELTO2.5 MG PO
[2018-11-27] MEDS ORDERED: WARF6 PO ×2 (09:31→09:35)
[2018-11-27] MEDS ORDERED: COUMADIN PO (09:33)
--- NOTE | 2018-11-27 10:40 | NUR ---
TIME OUT COMPLETED AT 1030.
--- NOTE | 2018-11-27 10:41 | NUR ---
PROCEDURE COMPLETED; PT TOLERATED WELL.
--- NOTE | 2018-11-27 10:59 | NUR ---
LEFT LE TELFA PAD OVER WOUND ON LEFT ANKLE REGION FOLLOWED BY LEFT LE WRAPPED WITH GAUZE, COBAN AND THIGH-HIGH 20-30 COMPRESSION STOCKING.
--- NOTE | 2018-11-27 11:04 | NUR ---
DR CRAMER IN RO0M TO VISIT WITH PT POST PROCEDURE.
--- NOTE | 2018-11-27 11:27 | NUR ---
PT'S IN ROOM.
--- NOTE | 2018-11-27 12:02 | NUR ---
DISCHARGE INSTRUCTIONS REVIEWED ALL QUESTIONS ANSWERED. 20 G IV DISCONTINUED FROM RIGHT FOREARM WITH INTACT CANNULA. LEFT LE NO BLEEDING, NO HEMATOMA. PT ESCORTED OUT VIA WHEELCHAIR ESCORT.
== END 2018-11-27 22:37 | disposition home or self-care (01) ==
LOC: MHTC 08:37
DX: I87.2 Venous insufficiency (chronic) (peripheral) (principal); L97.929 Non-pressure chronic ulcer of unspecified part of left lower leg with unspecified severity; I82.501 Chronic embolism and thrombosis of unspecified deep veins of right lower extremity; I48.2 Chronic atrial fibrillation; Z86.14 Personal history of Methicillin resistant Staphylococcus aureus infection; Z86.73 Personal history of transient ischemic attack (TIA), and cerebral infarction without residual deficits; Z88.0 Allergy status to penicillin; Z88.1 Allergy status to other antibiotic agents; Z88.2 Allergy status to sulfonamides; Z88.8 Allergy status to other drugs, medicaments and biological substances; Z91.041 Radiographic dye allergy status; Z79.01 Long term (current) use of anticoagulants
CPT/HCPCS: 36470; 36471; 99152; J2250; J3010; J7030; J7040

== ENCOUNTER 2019-02-19 15:16 | Emergency (ER) | payer MEDICARE, OTHER ==
[~2019-02-19] VITALS: Ht 177.8 cm; Wt 90.7 kg
[~2019-02-19 15:16] MED LIST changes: +COUMADIN PO
[2019-02-19] MEDS ORDERED: Norco 5-325 Ta1 EACH PO (16:38)
== END 2019-02-19 17:00 | disposition home or self-care (01) ==
LOC: ER 15:16
DX: S22.089A Unspecified fracture of T11-T12 vertebra, initial encounter for closed fracture (principal); S32.019A Unspecified fracture of first lumbar vertebra, initial encounter for closed fracture; V89.2XXA Person injured in unspecified motor-vehicle accident, traffic, initial encounter; Z88.2 Allergy status to sulfonamides; Z88.0 Allergy status to penicillin; Z88.8 Allergy status to other drugs, medicaments and biological substances; Z88.1 Allergy status to other antibiotic agents; Z79.899 Other long term (current) drug therapy; F41.9 Anxiety disorder, unspecified; E03.9 Hypothyroidism, unspecified; I48.91 Unspecified atrial fibrillation
CPT/HCPCS: 72080; 99283-25

== ENCOUNTER 2019-03-14 21:36 | Emergency (ER) | payer OTHER, MEDICARE ==
[~2019-03-14] VITALS: Ht 177.8 cm; Wt 83.9 kg
[2019-05-08] MEDS ORDERED: XARELTO15 MG PO (15:35)
== END 2019-03-15 02:35 | disposition home or self-care (01) ==
LOC: ER 21:36
DX: S09.90XA Unspecified injury of head, initial encounter (principal); S39.012A Strain of muscle, fascia and tendon of lower back, initial encounter; S70.02XA Contusion of left hip, initial encounter; W18.30XA Fall on same level, unspecified, initial encounter; I48.91 Unspecified atrial fibrillation; F41.9 Anxiety disorder, unspecified; E03.9 Hypothyroidism, unspecified; Z88.2 Allergy status to sulfonamides; Z88.0 Allergy status to penicillin; Z88.8 Allergy status to other drugs, medicaments and biological substances; Z88.1 Allergy status to other antibiotic agents; Z79.899 Other long term (current) drug therapy; Z79.01 Long term (current) use of anticoagulants
CPT/HCPCS: 70450; 72100; 73502; 99284-25

== ENCOUNTER 2019-05-09 09:42 | Day surgery (SDC) | payer MEDICARE, OTHER ==
[~2019-05-09] VITALS: Ht 172.7 cm; Wt 94.0 kg
--- NOTE | 2019-05-09 16:38 | NUR ---
PT DRESSED, AMB TO BATHROOM WELL. PRESENT. IV DC'D WITH CATH INTACT. GROIN SITE STABLE. NO BLEEDING OR OOZING. R DP 2+. PT DC'D BY YOSHI. AND SON DRIVING PT HOME. VERBALIZES UNDERSTANDING OF SITE CARE DC INSTRUCTIONS.
== END 2019-05-09 16:55 | disposition home or self-care (01) ==
LOC: MHTC 09:42
DX: I70.202 Unspecified atherosclerosis of native arteries of extremities, left leg (principal); Z79.899 Other long term (current) drug therapy; Z88.0 Allergy status to penicillin; Z88.2 Allergy status to sulfonamides; Z88.6 Allergy status to analgesic agent; Z88.8 Allergy status to other drugs, medicaments and biological substances; Z91.09 Other allergy status, other than to drugs and biological substances
CPT/HCPCS: 37228; 37232; 75625; 75716; 75774; 99152; 99153; C1725; C1760; C1769; C1887; C1894; J1200; J1644; J1720; J2250; J3010; J7030; Q9967

== ENCOUNTER 2019-08-15 14:11 | Emergency (ER) | payer MEDICARE, OTHER ==
[~2019-08-15] VITALS: Ht 177.8 cm; Wt 88.5 kg
[2019-08-15 14:45] LABS: BASOPHILS ABSOLUTE AUTO 0.02 K/mm3 (0.00-0.23); BASOPHILS PERCENT AUTO 0 % (0-2); EOSINOPHILS ABSOLUTE AUTO 0.28 K/mm3 (0.00-0.68); EOSINOPHILS PERCENT AUTO 4 % (0-6); Hematocrit 32.8 % (33.0-51.0); Hemoglobin 10.4 g/dL (11.5-16.0); IMMATURE GRAN ABSOLUTE AUTO 0.03 K/mm3 (0.00-0.10); IMMATURE GRAN PERCENT AUTO 0 % (0-1); LYMPHOCYTES ABSOLUTE AUTO 1.03 K/mm3 (0.84-5.20); LYMPHOCYTES PERCENT AUTO 15 % (21-46); MONOCYTES ABSOLUTE AUTO 0.47 K/mm3 (0.16-1.47); MONOCYTES PERCENT AUTO 7 % (4-13); Mean Corpuscular HGB 28.8 pg (26.0-34.0); Mean Corpuscular HGB Conc 31.7 g/dL (31.5-36.5); Mean Corpuscular Volume 91 fL (80-100); Mean Platelet Volume 8.8 fL (9.1-12.4); NEUTROPHILS ABSOLUTE AUTO 5.13 K/mm3 (1.96-9.15); NEUTROPHILS PERCENT AUTO 74 % (41-73); Platelet Count 233 K/mm3 (150-400); RDW Coefficient Variation 14.8 % (11.7-14.2); RDW Standard Deviation 49.8 fL (35.1-46.3); Red Blood Cell Count 3.61 M/mm3 (3.80-5.20); White Blood Cell Count 6.96 K/mm3 (4.00-11.30)
[2019-08-15 15:00] LABS: Alanine Aminotransfer (ALT/SGP 23 U/L (12-78); Albumin, Blood 4.2 g/dL (3.4-5.0); Albumin/Globulin Ratio 1.2 (0.8-1.8); Alk Phos 73 U/L (50-136); Anion Gap 6 mmol/L (6-16); Aspartate Aminotrans (AST/SGOT 21 U/L (12-37); Bilirubin, Total 0.5 mg/dL (0.1-1.0); Blood Urea Nitrogen 18 mg/dL (8-24); Bun/Creatinine Ratio 19.4 (12.0-20.0); CO2, Blood 30 mmol/L (21-32); Calcium, Blood 8.8 mg/dL (8.5-10.1); Chloride, Blood 106 mmol/L (98-108); Creatinine, Blood 0.93 mg/dL (0.40-1.00); Globulin, Blood 3.6 g/dL (2.2-4.0); Glomerular Filtration Rate >60 (60-); Glucose, Blood 115 mg/dL (70-99); Potassium, Blood 3.9 mmol/L (3.5-5.5); Sodium, Blood 142 mmol/L (136-145); Total Protein, Blood 7.8 g/dL (6.4-8.2)
[2019-08-15 15:09] LABS: International Normalized Ratio 1.23; Prothrombin Time Results 12.8 Sec (9.7-11.5)
[2019-08-15] MEDS ORDERED: CEPH500 PO (15:33)
== END 2019-08-15 15:56 | disposition home or self-care (01) ==
LOC: ER 14:11
PROVIDERS: Emergency Medicine; Physician Assistant
DX: L97.929 Non-pressure chronic ulcer of unspecified part of left lower leg with unspecified severity (principal); L03.116 Cellulitis of left lower limb; I82.512 Chronic embolism and thrombosis of left femoral vein; F03.90 Unspecified dementia, unspecified severity, without behavioral disturbance, psychotic disturbance, mood disturbance, and anxiety; Z88.2 Allergy status to sulfonamides; Z88.0 Allergy status to penicillin; Z88.8 Allergy status to other drugs, medicaments and biological substances; Z88.1 Allergy status to other antibiotic agents; Z88.5 Allergy status to narcotic agent; Z79.899 Other long term (current) drug therapy; Z79.01 Long term (current) use of anticoagulants
CPT/HCPCS: 36415; 80053; 85025; 85610; 93971; 99284-25; A9270-GY

== ENCOUNTER 2019-08-19 00:10 | Emergency (ER) | payer MEDICARE, OTHER ==
[~2019-08-19] VITALS: Ht 177.8 cm; Wt 94.3 kg
[2019-08-19 00:57] LABS: BASOPHILS ABSOLUTE AUTO 0.02 K/mm3 (0.00-0.23); BASOPHILS PERCENT AUTO 0 % (0-2); EOSINOPHILS ABSOLUTE AUTO 0.49 K/mm3 (0.00-0.68); EOSINOPHILS PERCENT AUTO 9 % (0-6); Hematocrit 30.9 % (33.0-51.0); Hemoglobin 9.5 g/dL (11.5-16.0); IMMATURE GRAN ABSOLUTE AUTO 0.02 K/mm3 (0.00-0.10); IMMATURE GRAN PERCENT AUTO 0 % (0-1); LYMPHOCYTES ABSOLUTE AUTO 0.88 K/mm3 (0.84-5.20); LYMPHOCYTES PERCENT AUTO 16 % (21-46); MONOCYTES ABSOLUTE AUTO 0.38 K/mm3 (0.16-1.47); MONOCYTES PERCENT AUTO 7 % (4-13); Mean Corpuscular HGB 27.8 pg (26.0-34.0); Mean Corpuscular HGB Conc 30.7 g/dL (31.5-36.5); Mean Corpuscular Volume 90 fL (80-100); Mean Platelet Volume 8.9 fL (9.1-12.4); NEUTROPHILS ABSOLUTE AUTO 3.83 K/mm3 (1.96-9.15); NEUTROPHILS PERCENT AUTO 68 % (41-73); Platelet Count 221 K/mm3 (150-400); RDW Standard Deviation 49.6 fL (35.1-46.3); Red Blood Cell Count 3.42 M/mm3 (3.80-5.20); White Blood Cell Count 5.62 K/mm3 (4.00-11.30)
== END 2019-08-19 01:26 | disposition home or self-care (01) ==
LOC: ER 00:10
PROVIDERS: Emergency Medicine
DX: L03.116 Cellulitis of left lower limb (principal); L97.829 Non-pressure chronic ulcer of other part of left lower leg with unspecified severity; I48.91 Unspecified atrial fibrillation; Z86.718 Personal history of other venous thrombosis and embolism
CPT/HCPCS: 36415; 85025; 99283

== ENCOUNTER → 2019-11-26 | Outpatient (CLI) | payer MEDICARE, OTHER | END | disposition home or self-care (01) | LOC: LAB SHORT 16:32 → LAB EV 16:32 | DX: L03.119 Cellulitis of unspecified part of limb (principal) | CPT/HCPCS: 87070; 87077; 87147; 87186; 87205 ==

== ENCOUNTER 2020-01-11 18:10 | Emergency (ER) | payer MEDICARE, OTHER ==
[~2020-01-11] VITALS: Ht 177.8 cm; Wt 86.2 kg
[2020-01-11] MEDS ORDERED: ACETAMINOPHEN500 MG PO (19:16)
== END 2020-01-11 19:54 | disposition home or self-care (01) ==
LOC: ER 18:10
DX: M54.5 Low back pain (principal); G89.29 Other chronic pain; M79.18 Myalgia, other site; Z88.0 Allergy status to penicillin; Z88.1 Allergy status to other antibiotic agents; Z88.8 Allergy status to other drugs, medicaments and biological substances; Z88.5 Allergy status to narcotic agent; Z91.048 Other nonmedicinal substance allergy status; Z88.2 Allergy status to sulfonamides; Z79.899 Other long term (current) drug therapy; Z79.2 Long term (current) use of antibiotics; I48.91 Unspecified atrial fibrillation; Z86.718 Personal history of other venous thrombosis and embolism; M91.0 Juvenile osteochondrosis of pelvis
CPT/HCPCS: 90471; 90714; 99283-25

== ENCOUNTER 2020-03-04 21:24 | Inpatient (IN) | payer MEDICARE, OTHER ==
[~2020-03-04] VITALS: Ht 177.8 cm; Wt 94.3 kg
[~2020-03-04 21:24] MED LIST changes: +ACETAMINOPHEN500 MG PO; -FURO40 PO
[2020-03-04 22:07] LABS: BASOPHILS ABSOLUTE AUTO 0.03 K/mm3 (0.00-0.23); BASOPHILS PERCENT AUTO 0 % (0-2); EOSINOPHILS PERCENT AUTO 1 % (0-6); IMMATURE GRAN ABSOLUTE AUTO 0.65 K/mm3 (0.00-0.10); IMMATURE GRAN PERCENT AUTO 4 % (0-1); LYMPHOCYTES ABSOLUTE AUTO 1.46 K/mm3 (0.84-5.20); LYMPHOCYTES PERCENT AUTO 9 % (21-46); MONOCYTES ABSOLUTE AUTO 0.92 K/mm3 (0.16-1.47); MONOCYTES PERCENT AUTO 6 % (4-13); Mean Corpuscular HGB 27.9 pg (26.0-34.0); Mean Corpuscular HGB Conc 30.1 g/dL (31.5-36.5); Mean Corpuscular Volume 93 fL (80-100); Mean Platelet Volume 9.7 fL (9.1-12.4); NEUTROPHILS ABSOLUTE AUTO 12.96 K/mm3 (1.96-9.15); NEUTROPHILS PERCENT AUTO 80 % (41-73); NRBC ABSOLUTE 0.05 K/mm3 (0.00-0.02); NRBC Auto 0.3 /100 WBC (0.0-0.2); Platelet Count 271 K/mm3 (150-400); RDW Coefficient Variation 16.3 % (11.7-14.2); RDW Standard Deviation 53.9 fL (35.1-46.3); Red Blood Cell Count 1.54 M/mm3 (3.80-5.20); White Blood Cell Count 16.12 K/mm3 (4.00-11.30)
[2020-03-04 22:10] LABS: Hematocrit 14.3 % (33.0-51.0); Hemoglobin 4.3 g/dL (11.5-16.0)
[2020-03-04 22:18] LABS: Bilirubin, Total 0.3 mg/dL (0.1-1.0); Bun/Creatinine Ratio 36.9 (12.0-20.0); Calcium, Blood 7.5 mg/dL (8.5-10.1); Creatinine, Blood 1.11 mg/dL (0.40-1.00); Potassium, Blood 4.1 mmol/L (3.5-5.5)
[2020-03-04 22:26] LABS: International Normalized Ratio 1.23
[2020-03-04] MEDS ORDERED: EUTHYROX50 MCG PO (22:58)
[2020-03-04] MEDS ORDERED: VENLAFAXINE H37.5 M1 PO (22:58)
[2020-03-04] MEDS ORDERED: METO25ER PO (22:58)
[2020-03-04] MEDS ORDERED: FURO40 PO (22:59)
[2020-03-05 06:11] LABS: BASOPHILS ABSOLUTE AUTO 0.03 K/mm3 (0.00-0.23); BASOPHILS PERCENT AUTO 0 % (0-2); EOSINOPHILS ABSOLUTE AUTO 0.23 K/mm3 (0.00-0.68); EOSINOPHILS PERCENT AUTO 2 % (0-6); Hematocrit 18.6 % (33.0-51.0); IMMATURE GRAN ABSOLUTE AUTO 0.28 K/mm3 (0.00-0.10); IMMATURE GRAN PERCENT AUTO 2 % (0-1); LYMPHOCYTES ABSOLUTE AUTO 1.48 K/mm3 (0.84-5.20); LYMPHOCYTES PERCENT AUTO 12 % (21-46); MONOCYTES ABSOLUTE AUTO 0.94 K/mm3 (0.16-1.47); MONOCYTES PERCENT AUTO 7 % (4-13); Mean Corpuscular HGB 29.1 pg (26.0-34.0); Mean Corpuscular HGB Conc 31.7 g/dL (31.5-36.5); Mean Corpuscular Volume 92 fL (80-100); Mean Platelet Volume 9.5 fL (9.1-12.4); NEUTROPHILS ABSOLUTE AUTO 9.74 K/mm3 (1.96-9.15); NEUTROPHILS PERCENT AUTO 77 % (41-73); NRBC ABSOLUTE 0.04 K/mm3 (0.00-0.02); NRBC Auto 0.3 /100 WBC (0.0-0.2); Platelet Count 209 K/mm3 (150-400); RDW Coefficient Variation 15.7 % (11.7-14.2); RDW Standard Deviation 51.5 fL (35.1-46.3); Red Blood Cell Count 2.03 M/mm3 (3.80-5.20)
[2020-03-05 06:12] LABS: Hemoglobin 5.9 g/dL (11.5-16.0)
--- NOTE | 2020-03-05 06:18 | NUR ---
SHIFT SUMMARY PATIENT SLEPT THROUGH NIGHT. DOES COMPLAIN OF SOME MILD PAIN WHEN TURNING, RESOLVED WITH REST. INCONTINENT AT BEGIN OF SHIFT. HEMOGLOBIN = 5.9 THIS AM, AWAITING CALL BACK FROM DR. CHEN TO GET MORE BLOOD ORDERED. ASSESSMENT IS TOLERATED. VSS. WILL CONTINUE TO MONITOR.
[2020-03-05 06:26] LABS: Alanine Aminotransfer (ALT/SGP 13 U/L (12-78); Albumin, Blood 2.7 g/dL (3.4-5.0); Alk Phos 43 U/L (50-136); Anion Gap 4 mmol/L (6-16); Aspartate Aminotrans (AST/SGOT 13 U/L (12-37); Bilirubin, Total 0.7 mg/dL (0.1-1.0); Blood Urea Nitrogen 33 mg/dL (8-24); Bun/Creatinine Ratio 35.2 (12.0-20.0); CO2, Blood 25 mmol/L (21-32); Calcium, Blood 7.2 mg/dL (8.5-10.1); Chloride, Blood 111 mmol/L (98-108); Creatinine, Blood 0.94 mg/dL (0.40-1.00); Globulin, Blood 2.7 g/dL (2.2-4.0); Glomerular Filtration Rate >60 (60-); Glucose, Blood 112 mg/dL (70-99); Potassium, Blood 3.7 mmol/L (3.5-5.5); Sodium, Blood 140 mmol/L (136-145); Total Protein, Blood 5.4 g/dL (6.4-8.2)
--- NOTE | 2020-03-05 09:08 | NUR ---
CONFIRMED WITH NOC NELSY JONES OF BLOOD TRANSFUSION STOP TIME. CHARTED STOPPED TIME ON 2ND UNIT PRBC FOR RN.
[2020-03-05 12:00] LABS: Hematocrit 23.4 % (33.0-51.0); Hemoglobin 7.5 g/dL (11.5-16.0)
--- NOTE | 2020-03-05 15:34 | NUR ---
TRANSFER OF CARE REPORT GIVEN TO ISABEL PRE-OP RN. PT LEFT VIA [facility] FOR ENDOSCOPY.
--- NOTE | 2020-03-05 15:41 | NUR ---
PATIENT BROUGHT TO [facility] FROM ICU PATIENT IS PCU STATUS. ADMISSION STARTED
--- NOTE | 2020-03-05 16:54 | NUR ---
03/05/20 1654 JOY GONZALEZ History, Chart, Medications and Allergies reviewed before start of procedure. 3-LEAD EKG REVIEWED WITH PHYSICIAN PRIOR TO START OF PROCEDURE. O2 VIA N/C INTACT THROUGHOUT SEDATION/PROCEDURE. MONITOR INTACT WITH CONTINUOUS PULSE OXIMETRY AND INTERMITTENT BP. PATIENT DETERMINED TO BE ASA APPROPRIATE FOR PROPOFOL SEDATION PRIOR TO START OF PROCEDURE BY DR. BOWMAN.
--- NOTE | 2020-03-05 17:28 | NUR ---
TRANSFER OF CARE REPORT GIVEN TO NELSY BRYANT IN PCU. PT TO TRANSFER FROM DAY SURGERY TO PCU. BELONGINGS TAKEN OVER TO PCU 11.
--- NOTE | 2020-03-05 17:30 | NUR ---
PATIENT ARRIVED TO ROOM FROM ENDOSCOPY ROOM. AWAKE, DENIES NAUSEA OR OTHER SX. VSS. PATIENT TO HAVE REG DIET. CONT TO MONITOR.
[2020-03-05 19:10] LABS: Hematocrit 26.2 % (33.0-51.0); Hemoglobin 8.1 g/dL (11.5-16.0)
[2020-03-05 21:56] LABS: Hematocrit 24.1 % (33.0-51.0); Hemoglobin 7.6 g/dL (11.5-16.0)
[2020-03-06 04:13] LABS: BASOPHILS ABSOLUTE AUTO 0.02 K/mm3 (0.00-0.23); BASOPHILS PERCENT AUTO 0 % (0-2); EOSINOPHILS ABSOLUTE AUTO 0.41 K/mm3 (0.00-0.68); EOSINOPHILS PERCENT AUTO 4 % (0-6); Hematocrit 22.3 % (33.0-51.0); IMMATURE GRAN ABSOLUTE AUTO 0.14 K/mm3 (0.00-0.10); IMMATURE GRAN PERCENT AUTO 1 % (0-1); LYMPHOCYTES PERCENT AUTO 12 % (21-46); MONOCYTES ABSOLUTE AUTO 0.81 K/mm3 (0.16-1.47); MONOCYTES PERCENT AUTO 8 % (4-13); Mean Corpuscular HGB 28.6 pg (26.0-34.0); Mean Corpuscular HGB Conc 31.4 g/dL (31.5-36.5); Mean Corpuscular Volume 91 fL (80-100); Mean Platelet Volume 9.4 fL (9.1-12.4); NEUTROPHILS ABSOLUTE AUTO 7.55 K/mm3 (1.96-9.15); NEUTROPHILS PERCENT AUTO 75 % (41-73); NRBC ABSOLUTE 0.04 K/mm3 (0.00-0.02); NRBC Auto 0.4 /100 WBC (0.0-0.2); Platelet Count 231 K/mm3 (150-400); RDW Coefficient Variation 15.8 % (11.7-14.2); RDW Standard Deviation 51.8 fL (35.1-46.3); Red Blood Cell Count 2.45 M/mm3 (3.80-5.20); White Blood Cell Count 10.13 K/mm3 (4.00-11.30)
[2020-03-06 04:35] LABS: Albumin, Blood 2.9 g/dL (3.4-5.0); Albumin/Globulin Ratio 1.1 (0.8-1.8); Bilirubin, Total 0.5 mg/dL (0.1-1.0); Bun/Creatinine Ratio 22.3 (12.0-20.0); Calcium, Blood 7.4 mg/dL (8.5-10.1); Creatinine, Blood 1.03 mg/dL (0.40-1.00); Globulin, Blood 2.6 g/dL (2.2-4.0); Potassium, Blood 3.1 mmol/L (3.5-5.5); Total Protein, Blood 5.5 g/dL (6.4-8.2)
--- NOTE | 2020-03-06 05:26 | NUR ---
SHIFT SUMMARY PT SLEEPING IN ROOM COMFORTABLY AT THIS TIME. NO ACUTE CHANGES IN STATUS T/O NIGHT. PT HAS SERIAL H+H LABS DRAWN AFTER EGD, TRENDING DOWN. PROVIDER CALLED WHEN HGB REACHED 7.0, PT TO RECIVE 1 UNIT PRBC'S. NO SIGNS OF BLEEDING NOTED. PER REPORT GI CONSIDERING CAPSULE STUDY. PT IS VERY FORGETFUL W/ HX OF DEMENTIA. VERY PLEASENT AFFECT BUT NEEDS REDIRECTION TO NOT PULL AT CORDS AND WIRES. PT COMPLIENT ONCE RE-EDUCATED. RESP EVEN UNLABORED ON RA W/ SATS >92%. PT DOES C/O RIB PAIN, REPORTS OLD RIB FX TO L SIDE. PAIN RESOLVED W/ REPOSITIONING. BRUISING NOTED TO BUE AND L LEG D/T RECENT FALL. PT DENIED CP OR SOB DURING NIGHT. CALL LIGHT IN REACH. BED ALARM ON FOR SAFTEY.
--- NOTE | 2020-03-06 07:45 | NUR ---
pt laying in bed awake a/o to self, she is very forgetful, needs reorienting frequently, is aware she is confused, states she is having trouble telling the difference between a dream and reality, pleasant and cooperative with care, follows commands well, denies pain, except her right shoulder is bothering her, lungs are clear t/o, on r/a, resp even and unlabored, no cough noted, hrirr, tele in place running afib per monitor, see strip, edema noted to rle, 2-3+, ppp+2, cap refill <3sec, vs stable, afebrile, iv site is clear and patent to rfa, second iv on rfa was found sitting on top of the arm, completly out, btx4, hypoactive, abd flat soft nontender, voids via bsc, skin has very dark b/l le, left a bit worse, with a healing would to jasso, not open, shayy rashid, call light in reach, currently recieving a transfusion.
--- NOTE | 2020-03-06 12:37 | NUR ---
spouce in visting pt. v.s. stable. no complaints or needs at this time, call light in reach.
[2020-03-06 16:06] LABS: Hematocrit 26.8 % (33.0-51.0); Hemoglobin 8.5 g/dL (11.5-16.0)
--- NOTE | 2020-03-06 16:35 | NUR ---
PT IN [employer] WATCHING TV. DR. RODRIGUEZ WAS IN TO SEE HER, V.S. STABLE. NO CHANGES. CALL LIGHT IN REACH.
--- NOTE | 2020-03-06 18:48 | NUR ---
no acute changes this shift. she is getting up to the bsc to void, spouce has been in to see her a few times today. call light in reach.
--- NOTE | 2020-03-06 19:10 | NUR ---
REPORT AND ROUNDS WITH LORNA WHITTINGTON. ASSUMED PT CARE. PT RESTING IN POSITION OF COMFORT. PT PLEASANT WITH INTRODUCTIONS. CALL LIGHT/REMOTE IN REACH.
--- NOTE | 2020-03-06 21:10 | NUR ---
PT REMOVED TELE AND PULLED OUT IV. DRESSING PLACED. TELE REAPPLIED. PT REORIENTED TO UNIT. WILL START NEW IV.
--- NOTE | 2020-03-06 21:55 | NUR ---
NEW IV PLACED TO LEFT WRIST. SECURED WITH TEGADERM AND COVERED WITH STOCKING MATERIAL.
--- NOTE | 2020-03-06 23:46 | NUR ---
SPOKE AT LENGTH WITH PT SON. PT SON VERY CONCERNED RE PT H/H AND SOURCE OF BLEEDING. PT SON WANTING MORE INFORMATION ABOUT [facility] THAT GI HAD MENTIONED.
--- NOTE | 2020-03-07 01:11 | NUR ---
ASSISTED PT TO BSC WITH ASSISTANCE FROM LACHELLE. PT VOIDED, PULLUP CHANGED. ASSISTED PT BACK TO BED. REMOTE/CALL LIGHT IN REACH. LIGHT DIMMED. MUSIC CHANNEL ON INSTEAD OF NEWS. PT CONFUSED. CONTINUES TO ASK ABOUT FAMILY AND WHETHER OR NOT THEY ARE . EXPLAINED TO PT THAT THIS RN SPOKE WITH PT SON THIS EVENING AND THAT PT SAT WITH HER YEST. PT EASILY REDIRECTED. REMAINS CONFUSED TO SITUATION.
--- NOTE | 2020-03-07 02:15 | NUR ---
PT RESTING IN POSITION OF COMFORT. RESP EVEN AND NON LABORED. BEDALARM ARMED.
--- NOTE | 2020-03-07 04:02 | NUR ---
LAB AT BEDSIDE.
[2020-03-07 05:23] LABS: BASOPHILS ABSOLUTE AUTO 0.02 K/mm3 (0.00-0.23); BASOPHILS PERCENT AUTO 0 % (0-2); EOSINOPHILS ABSOLUTE AUTO 0.53 K/mm3 (0.00-0.68); EOSINOPHILS PERCENT AUTO 6 % (0-6); Hemoglobin 7.9 g/dL (11.5-16.0); IMMATURE GRAN ABSOLUTE AUTO 0.15 K/mm3 (0.00-0.10); IMMATURE GRAN PERCENT AUTO 2 % (0-1); LYMPHOCYTES ABSOLUTE AUTO 0.89 K/mm3 (0.84-5.20); LYMPHOCYTES PERCENT AUTO 10 % (21-46); MONOCYTES ABSOLUTE AUTO 0.74 K/mm3 (0.16-1.47); MONOCYTES PERCENT AUTO 8 % (4-13); Mean Corpuscular HGB 28.6 pg (26.0-34.0); Mean Corpuscular HGB Conc 31.6 g/dL (31.5-36.5); Mean Corpuscular Volume 91 fL (80-100); Mean Platelet Volume 9.6 fL (9.1-12.4); NEUTROPHILS ABSOLUTE AUTO 6.65 K/mm3 (1.96-9.15); NEUTROPHILS PERCENT AUTO 74 % (41-73); NRBC ABSOLUTE 0.02 K/mm3 (0.00-0.02); NRBC Auto 0.2 /100 WBC (0.0-0.2); Platelet Count 208 K/mm3 (150-400); RDW Coefficient Variation 15.8 % (11.7-14.2); RDW Standard Deviation 51.4 fL (35.1-46.3); Red Blood Cell Count 2.76 M/mm3 (3.80-5.20); White Blood Cell Count 8.98 K/mm3 (4.00-11.30)
[2020-03-07 05:46] LABS: Albumin, Blood 2.9 g/dL (3.4-5.0); Anion Gap 4 mmol/L (6-16); Blood Urea Nitrogen 19 mg/dL (8-24); Bun/Creatinine Ratio 18.1 (12.0-20.0); CO2, Blood 31 mmol/L (21-32); Calcium, Blood 7.6 mg/dL (8.5-10.1); Chloride, Blood 104 mmol/L (98-108); Creatinine, Blood 1.05 mg/dL (0.40-1.00); Glomerular Filtration Rate 53 (60-); Glucose, Blood 116 mg/dL (70-99); Magnesium, Blood 2.3 mg/dL (1.6-2.4); Potassium, Blood 3.1 mmol/L (3.5-5.5); Sodium, Blood 139 mmol/L (136-145)
--- NOTE | 2020-03-07 05:54 | NUR ---
SHIFT SUMMARY PT REMAINED CONFUSED AND PLEASANT THROUGHOUT SHIFT. VSS. PT USES BSC WHEN OFFERED. NEW IV TO LEFT FA PLACED LAST NIGHT DUE TO PT PULLING IT OUT LAST NIGHT. PT DENIED PAIN, DENIES SOB. RIGHT LEG SWOLLEN. PT USES WALKER WHEN PROMPTED. PT NEEDS LOTS OF REASSURANCE AND REORIENTATION. USES CALL LIGHT SOMETIMES. WILL CONTINUE TO MONITOR AND REPORT TO DAY SHIFT.
--- NOTE | 2020-03-07 06:25 | NUR ---
PT MEDICATED WITH SYNTHROID AND PROTONIX PER EMAR. MARLEN PO WELL. SITTING UP IN BED. CALL LIGHT IN REACH. C/O PAIN TO LEFT CHEST/BREAST AREA.
--- NOTE | 2020-03-07 07:04 | NUR ---
REPORT TO LORNA WHITTINGTON.
--- NOTE | 2020-03-07 07:54 | NUR ---
Moderate assistance from bed to bathroom to void. She is able to walk using the walker and with direction. Gait belt used for safety as the pt states her knees "buckle' sometimes. Her son is here at this time. Assisted to chair with chair alarm in place for breakfast.
--- NOTE | 2020-03-07 08:00 | NUR ---
PT UP TO CHAIR FOR BREAKFAST, ALERT, PROFOUNDLY FORGETFUL BUT REDIRECTS, IS PLEASANT AND COOPERATIVE WITH CARE, FOLLOWS COMMANDS WELL, DENIES PAIN, LUNGS ARE CLEAR IN UPPER MEEKS, VERY FAINT/FINE CRACKLES TO BASES, RESP EVEN AND UNLABORED, NO COUGH NOTED, HRIRR, TELE IN PLACE RUNNING AFIB PER MONITOR, SEE STRIP, EDEMA NOTED TO B/L LE, RIGHT LEG IS LARGER THAN LEFT, PPP+1, CAP REFILL <3SEC, VS STABLE, AFEBRILE, IV SITE IS CLEAR AND PATENT, BTX4, ABD FLAT SOFT NONTENDER, VOIDS WITHOUT DIFF, SKIN C/W/D, MAEW, ROBBIE, CALL LIGHT IN REACH.
--- NOTE | 2020-03-07 19:56 | NUR ---
PT ARREIVED TO FLOOR FROM PCU POST RN REPORT. BUSINESS OFFICE DIRECTOR REPOSRTE PT WITH DX GI BLEED, AND HAD OVER THE PAST FEW DAYS ON PCU 4 UNITS OF PRBC'S. LATEST HGB WAS 7.9 AND THAT MD WAS AWARE. PRESENTS SELF CHEERFUL, BUT SOMEWHAT FORGETFUL. ASSISSTED TO BED, BED ALARM ON. CALL LIGHT IN REACH.
--- NOTE | 2020-03-08 05:17 | NUR ---
SHIFT SUMMARY HAS BEEN RESTING QUIETLY WITH FEW INTERRUPTIONS THIS SHIFT. BED ALARM REMAINS ON FOR SAFETY AND CALL LIGHT IN REACH.
[2020-03-08 06:03] LABS: BASOPHILS ABSOLUTE AUTO 0.02 K/mm3 (0.00-0.23); BASOPHILS PERCENT AUTO 0 % (0-2); EOSINOPHILS ABSOLUTE AUTO 0.54 K/mm3 (0.00-0.68); EOSINOPHILS PERCENT AUTO 6 % (0-6); Hematocrit 25.9 % (33.0-51.0); IMMATURE GRAN ABSOLUTE AUTO 0.14 K/mm3 (0.00-0.10); IMMATURE GRAN PERCENT AUTO 2 % (0-1); LYMPHOCYTES ABSOLUTE AUTO 0.92 K/mm3 (0.84-5.20); LYMPHOCYTES PERCENT AUTO 10 % (21-46); MONOCYTES ABSOLUTE AUTO 0.69 K/mm3 (0.16-1.47); MONOCYTES PERCENT AUTO 7 % (4-13); Mean Corpuscular HGB 28.5 pg (26.0-34.0); Mean Corpuscular HGB Conc 30.9 g/dL (31.5-36.5); Mean Corpuscular Volume 92 fL (80-100); Mean Platelet Volume 9.8 fL (9.1-12.4); NEUTROPHILS ABSOLUTE AUTO 7.06 K/mm3 (1.96-9.15); NEUTROPHILS PERCENT AUTO 75 % (41-73); Platelet Count 211 K/mm3 (150-400); RDW Coefficient Variation 15.7 % (11.7-14.2); Red Blood Cell Count 2.81 M/mm3 (3.80-5.20); White Blood Cell Count 9.37 K/mm3 (4.00-11.30)
[2020-03-08 06:24] LABS: Anion Gap 5 mmol/L (6-16); Blood Urea Nitrogen 18 mg/dL (8-24); Bun/Creatinine Ratio 16.8 (12.0-20.0); CO2, Blood 31 mmol/L (21-32); Calcium, Blood 7.9 mg/dL (8.5-10.1); Chloride, Blood 103 mmol/L (98-108); Creatinine, Blood 1.07 mg/dL (0.40-1.00); Glomerular Filtration Rate 52 (60-); Glucose, Blood 110 mg/dL (70-99); Magnesium, Blood 2.4 mg/dL (1.6-2.4); Phosphorus, Blood 4.2 mg/dL (2.5-4.9); Potassium, Blood 3.4 mmol/L (3.5-5.5); Sodium, Blood 139 mmol/L (136-145)
--- NOTE | 2020-03-08 06:43 | NUR ---
PT RESTING QUIETLY AT THIS TIME. NO NOTED BLEEDING OF ORAL OR RECTAL THIS SHIFT SINCE PT ARRIVED ON FLOOR LAST EVENING. WILL CONTINUE TO MONITOR
--- NOTE | 2020-03-08 07:15 | NUR ---
PT PLEASANT COOP A/O X2, AWARE OF FAMILY, SELF, , MONTH AND YEAR. STATES IN DOWS, [facility], [place] OR. FORGETS DETAILS. OFTEN TALKS IN LOOP REPEATING SAME QUESTIONS OR CONCERNS. NOW CONCERNED ABOUT GETTING UP 15 STEPS AND GOING HOME. STATES PAIN IN RIBS. SPOKE TO DR KINGSLEY PAIN, AND POSS HOME FALL, DR STATES NOT AWARE OF A HOME FALL. PT STATES PRESIDENT IS [place]PP[place]. MED FOR PAIN. PER EMAR. H/R IRREG, NO MURMER NOTED. PER TELE AFIB WITH BBB RATE ABOUT 100. LUNGS CLEAR , RESP EASY, UNLABORED. ON R/A. BT X 4 LAST BM NOT KNOWN BY PT. VOIDS CONT/INCONT. 1 ASST WITH FWW. BED IN LOW POSITION, CALL LITE IN REACH, BED ALARM ON FOR SAFETY.
--- NOTE | 2020-03-08 17:39 | NUR ---
PT PLEASANTLY CONFUSED. IN TO SEE HER TODAY. HE ALSO CONFUSED. EACH USING LOOP REASONING TO GET THEIR POINT ACROSS. REFUSING TO LET THE OTHER EXPRESS THEIR THOUGHTS WITHOUT INTERUPTION. EVENTUALLY, THEY DID CALM DOWN SOME. WHEN DISCUSSING HER GETTING BACK TO HER BASELINE, HE BEGAN TO INTERUPT HER AGAIN, SHE INTERUPTED HIM. EMPHATICALLY STATES TO HIM SHE WILL NEVER START HER PERIOD AGAIN. I EXPLAINED WAS REFERENCING FROM GI BLEED AND HER AMBULATORY BASELINE . THEN SHE WANT BACK TO DISCUSSING POLIO FROM HER CHILDHOOD. TRIED TO REDIRECT, BUT TO NO AVAIL. PT CONTINUES TO BE PLEASANTLY CONFUSED. NO NEW CONCERNS AT THIS TIME. BED IN LOW POSITION, CALL LITE IN REACH, BED ALARM ON FOR SAFETY
--- NOTE | 2020-03-08 22:03 | NUR ---
PT VOICED "FEELS LIKE A BAND AROUND MY CHEST WHEN I BREATHE". VSS. SATS 93-94% ON ROOM AIR. NO NOTED CLOTHING, ETC, TIGHT ON CHEST. HOB ELEVATED. CALL LIGHT IN REACH. CALL PLACED TO COOK APPRENTICE. ORDERS RECEIVED FOR TROP LEVEL, AND EKG, ONCE COMPLETED TO CALL BACK COOK APPRENTICE FOR ER TO SEE PT.
--- NOTE | 2020-03-08 22:28 | NUR ---
12 LEAD EKG DONE, A FIB WITH BBB. PT HAS HAD THIS REPORTED OFF BY AM NURSE. TROP LEVEL DRAWN, WAITING FOR RESULTS. REPOSITIONED FOR COMFORT. AWAITING TROP LEVEL AND WILL CALL DIGITAL ACCOUNT COORDINATOR BACK ORDERED
--- NOTE | 2020-03-08 22:47 | NUR ---
CURATORIAL ASSISTANT NOTIFIED OF TROP LEVEL (0.015 AND EKG OF A FIB WITH BBB). CURATORIAL ASSISTANT ORDERS RT TO FOLLOW UP AND TREAT. RT NOTIFIED. CALL LIGHT IN PT REACH
--- NOTE | 2020-03-09 01:04 | NUR ---
PT AWAKE AT INTERVALS TALKING OUT LOUD. UPON ARRIVING AT BEDSIDE, PT ALONE, NOT TALKING ON PHONE. VOICED PAIN OF RIGHT SIDE OF RIBCAGE, BUT NO COMPLAINTS OF DIFFICULTY BREATHING. AFFECT CHEERFUL AFTER TALKING WITH RN. HOB ELEVATED. RT HAD GIVEN TREATMENT EARLIER - SEE RT NOTATIONS. CALL LIGHT IN REACH. WILL CONTINUE TO MONITOR.
--- NOTE | 2020-03-09 04:24 | NUR ---
SHIFT LALITO RESTING QUIETLY AT THIS TIME, EARLIER PT SOUNDED IF SHE WAS ARGUING WITH SOMEONE, BUT UPON ENTERING ROOM, WAS BY SELF AND NOT ON THE PHONE. EARLIER IN THE SHIFT, VOICED DIFFICULTY WITH BREATHING, VOICED FEELING SHE FELT LIKE SHE HAD A "BAND" RESTRICTING HER RESPS AROUND HER CHEST. TROP WNL, 12 LEAD EKG A FIB WITH BBB. BEST WORKER ORDERED RT TO EVAL. RT ASSESSED AND GAVE RESP TREATMENT. LATER STILL, VOICED SOME DISCOMFORT OF RIGHT LOWER RIB CAGE AREA. NO NOTED ANOMALY OF AREA. VSS. NURSE PROVIDED ENCOURAGEMENT AND TIME TO LISTEN. APPARENTLY INTERVENTIONS EFFECTIVE, PT RESTING QUIETLY AT THIS TIME. CALL LIGHT IN REACH.
[2020-03-09 05:20] LABS: BASOPHILS ABSOLUTE AUTO 0.03 K/mm3 (0.00-0.23); BASOPHILS PERCENT AUTO 0 % (0-2); EOSINOPHILS ABSOLUTE AUTO 0.53 K/mm3 (0.00-0.68); EOSINOPHILS PERCENT AUTO 6 % (0-6); Hematocrit 26.7 % (33.0-51.0); Hemoglobin 8.1 g/dL (11.5-16.0); IMMATURE GRAN ABSOLUTE AUTO 0.11 K/mm3 (0.00-0.10); IMMATURE GRAN PERCENT AUTO 1 % (0-1); LYMPHOCYTES ABSOLUTE AUTO 0.99 K/mm3 (0.84-5.20); LYMPHOCYTES PERCENT AUTO 12 % (21-46); MONOCYTES ABSOLUTE AUTO 0.64 K/mm3 (0.16-1.47); MONOCYTES PERCENT AUTO 7 % (4-13); Mean Corpuscular HGB 28.3 pg (26.0-34.0); Mean Corpuscular HGB Conc 30.3 g/dL (31.5-36.5); Mean Corpuscular Volume 93 fL (80-100); Mean Platelet Volume 9.4 fL (9.1-12.4); NEUTROPHILS PERCENT AUTO 73 % (41-73); Platelet Count 210 K/mm3 (150-400); RDW Coefficient Variation 15.7 % (11.7-14.2); Red Blood Cell Count 2.86 M/mm3 (3.80-5.20)
[2020-03-09 05:40] LABS: Anion Gap 5 mmol/L (6-16); Blood Urea Nitrogen 20 mg/dL (8-24); CO2, Blood 31 mmol/L (21-32); Chloride, Blood 103 mmol/L (98-108); Creatinine, Blood 1.05 mg/dL (0.40-1.00); Glomerular Filtration Rate 53 (60-); Glucose, Blood 114 mg/dL (70-99); Phosphorus, Blood 3.8 mg/dL (2.5-4.9); Potassium, Blood 3.5 mmol/L (3.5-5.5); Sodium, Blood 139 mmol/L (136-145)
[2020-03-09] MEDS ORDERED: ACET325 PO (16:36)
[2020-03-09] MEDS ORDERED: ASCO500 PO (16:37)
[2020-03-09] MEDS ORDERED: FERSU300 PO (16:38)
[2020-03-09] MEDS ORDERED: PANT40 PO (16:39)
--- NOTE | 2020-03-09 19:29 | NUR ---
PATIENT DISCHARGE: PATIENT DISCHARGED TO HOME / XFR TO HOME HEALTH THIS SHIFT. MEDICATION RECONCILIATION COMPLETED; MED LIST FAXED TO [facility]. DISCHARGE EDUCATION COMPLETED WITH PATIENT AND SON. PATIENT TRANSPORTED TO EXIT BY [facility] STAFF WITH WHEELCHAIR AT 1730. PATIENT DEPARTED [facility] VIA AMBULANCE.
--- NOTE | 2020-03-11 08:37 | NUR ---
UPDATES TO CHARGES AND TIMES WITH JOY GONZALEZ.
== END 2020-03-09 18:07 | disposition home health service (06) | DRG 378 ==
LOC: ER 21:24 → PCU 21:25 → ICUW 21:25 → ER 23:47 → ICUW 23:47 → PCU 03-05 17:49 → MEDS 03-06 10:14 → PCU 03-06 10:14 → MEDS 03-07 19:50
PROVIDERS: Emergency Medicine; Hospitalist; Internal Medicine Gastroenterology; ADMIT Internal Medicine
PROC: 0DB78ZX Excision of Stomach, Pylorus, Via Natural or Artificial Opening Endoscopic, Diagnostic (ICD-10-PCS; 2020-03-05)
PROC: 0DB68ZX Excision of Stomach, Via Natural or Artificial Opening Endoscopic, Diagnostic (ICD-10-PCS; principal; 2020-03-05 16:00)
PROC: 30233N1 Transfusion of Nonautologous Red Blood Cells into Peripheral Vein, Percutaneous Approach (ICD-10-PCS; 2020-03-08)
DX: K25.4 Chronic or unspecified gastric ulcer with hemorrhage (principal); D62 Acute posthemorrhagic anemia; I48.19 Other persistent atrial fibrillation; R91.8 Other nonspecific abnormal finding of lung field; F03.90 Unspecified dementia, unspecified severity, without behavioral disturbance, psychotic disturbance, mood disturbance, and anxiety; I87.8 Other specified disorders of veins
CPT/HCPCS: 36415; 71250; 74176; 80053; 80069; 83735; 84484; 85014; 85018; 85025; 85610; 85730; 86850; 86900; 86901; 86923; 88305; 88342; 93005; 93010; 96360; 96376; 97116; 97162; 97165; 97530; 97535; 99285-25; A9270; A9270-GY; C9113; G0378; J2250; J2704; J2916; J7030; J7120; P9016; U0002